=== PATIENT | female | born 1990 | race Caucasian/White ===

== ENCOUNTER 2018-05-25 14:43 | Emergency (ER) | payer BC ==
[~2018-05-25] VITALS: Ht 162.6 cm; Wt 54.8 kg
[~2018-05-25 14:43] MED LIST: ALBU18HF2 INH; GUAI-178 PO; ONDA4TAB12 PO
[2018-05-25] MEDS ORDERED: CefTRIAXone 2gm/D5W 50ml 50 ML IV ONE (15:10)
[2018-05-25] MEDS ORDERED: normal saline 1000ML IV soln IV ONE (15:10)
[2018-05-25] MEDS ORDERED: acetaminophen 325mg/10.15ml oral unit dose solution PO ONE (15:10)
[2018-05-25 15:47] LABS: BASOPHILS % (AUTO) 0 % (0-1); EOSINOPHILS # (AUTO) 0.2 X10'3 (0-0.9); EOSINOPHILS % (AUTO) 2.4 % (0-6); HEMATOCRIT 31.4 % (35.0-45.0); HEMOGLOBIN 10.2 g/dl (12.0-16.0); LYMPHOCYTES # (AUTO) 0.2 X10'3 (1.1-4.8); LYMPHOCYTES % (AUTO) 2.4 % (21-51); MEAN CORPUSCULAR HEMOGLOBIN 25.1 PG (27.0-31.0); MEAN CORPUSCULAR HGB CONC 32.6 % (33.0-36.5); MEAN CORPUSCULAR VOLUME 76.8 FL (78-98); MONOCYTES # (AUTO) 0.3 X10'3 (0-0.9); MONOCYTES % (AUTO) 3.9 % (2-12); NEUTROPHILS # (AUTO) 7.6 X10'3 (1.8-7.7); NEUTROPHILS % (AUTO) 91.3 % (42-75); PLATELET COUNT 405 X10'3 (140-440); RED BLOOD COUNT 4.08 X10'6 (4.20-5.60); RED CELL DISTRIBUTION WIDTH 19.8 % (11.5-14.5); WHITE BLOOD COUNT 8.3 X10'3 (4.5-11.0)
[2018-05-25 16:02] LABS: ALANINE AMINOTRANSFERASE 18 U/L (12-78); ALBUMIN 3.9 G/DL (3.4-5.0); ALKALINE PHOSPHATASE 39 IU/L (46-116); ANION GAP 11 (8-16); ASPARTATE AMINO TRANSFERASE 13 U/L (10-37); BILIRUBIN,TOTAL 0.6 MG/DL (0.1-1.0); BLOOD UREA NITROGEN 8 MG/DL (7-18); BUN/CREATININE RATIO 9.8 (6.6-38.0); CALCIUM 8.4 MG/DL (8.5-10.1); CHLORIDE 101 MMOL/L (99-107); CREATININE 0.82 MG/DL (0.40-0.90); GLUCOSE 95 MG/DL (70-104); POTASSIUM 3.6 MMOL/L (3.5-5.1); SODIUM 137 MMOL/L (135-145); TOTAL CARBON DIOXIDE 24.8 MMOL/L (24-32); TOTAL PROTEIN 7.7 G/DL (6.4-8.2); eGFR 84 ML/MIN
[2018-05-25 16:47] LABS: CLARITY,URINE Clear (Clear); COLOR,URINE Yellow (Yellow); GLUCOSE, URINE Negative (Neg); KETONES,URINE 15 mg/dl (Neg); LEUKOCYTE ESTERASE ,URINE Negative (Neg); NITRITES, URINE Negative (Neg); OCCULT BLOOD,URINE Negative (Neg); PROTEIN,URINE Negative (Neg); UROBILINOGEN,URINE 0.2 E.U/dL (0.2-1.0)
[2018-05-25] MEDS ORDERED: ondansetron/PF 4mg/2ml inj IV ONE (16:55)
[2018-05-25 17:03] LABS: UA COLLECTION TYPE CLN CATCH MIDSTREAM
[2018-05-25] MEDS ORDERED: ONDA4TAB9 PO (18:51)
[2018-05-26 11:29] VITALS: BP 108/59
== END 2018-05-26 11:33 | disposition home or self-care (01) ==
LOC: ER 14:44
DX: R50.9 Fever, unspecified (principal); F17.200 Nicotine dependence, unspecified, uncomplicated; Z79.899 Other long term (current) drug therapy
CPT/HCPCS: 36415; 71045; 80053; 81003; 83605; 84145; 85025; 87040; 96365; 96375; 99285; J0696; J2405; J7030